=== PATIENT | female | born 1995 | race Caucasian/White ===

== ENCOUNTER 2017-06-11 20:21 | Emergency (ER) | payer BC ==
[~2017-06-11] VITALS: Ht 161.3 cm; Wt 81.6 kg
--- NOTE | ~2017-06-11 | US134 ---
[facility] A Service of [facility] RADIOLOGY TEXT RESULTS PATIENT: ROLY DESAI LOCATION: [facility] : [birth year] UNIT #: [id number] AGE: [address]: Gwyn Keita MD SEX: F ORDER DR: [id number] [facility] [address] [place], [place] [address] [id number] E MR#: [id number] Acc #: [id number] NAME: ROLY DESAI. : 1995 SEX: F STUDY DATE/TIME: 06/11/2017 21:09 UNIT: [facility] ROOM: STUDY DESCRIPTION: US Transvaginal Attending Physician: Drake Keita M.D. Ordering Physician: Angie Dale M.D. Primary Care Physician: Kole Stevenson M.D. MEDICAL IMAGING REPORT This report is preliminary unless electronic signature is present EXAM Pelvic ultrasound INDICATIONS Pelvic inflammatory disease. Tubal ovarian abscess. Left adnexal pain for 5 days of increasing severity. COMPARISON CT abdomen and pelvis 09/05/2014. FINDINGS Uterus is anteverted measuring 7.3 x 3.1 x 5 cm. Echogenicity echotexture of the myometrium is homogeneous. Initial stripe is homogeneous measuring 5 mm in thickness. The right ovary measures 2.9 x 2 x 2.1 cm. The left ovary measures 1.8 x 1.7 x 1.7 cm. There are a few normal follicular cysts within both ovaries. There is normal color Doppler flow. No adnexal mass or free pelvic fluid. IMPRESSION Negative pelvic ultrasound. Dictated by... Erick Alarcon M.D. THIS IS AN ELECTRONICALLY VERIFIED REPORT Erick Alarcon M.D. at 06/12/2017 3:12 PM CARRIE/dunia TD: 06/11/2017 22:39 JOB #: [id number] [facility] A Service [facility] RADIOLOGY TEXT RESULTS PATIENT: ROLY DESAI [facility] #: [id number] : [birth year] UNIT #: [id number] AGE: [address]: Gwyn Keita MD SEX: F ORDER DR: MEDICAL IMAGING REPORT Page 1 of 1 COPY
[~2017-06-11 20:21] MED LIST: FOCALIN XR PO; MOTRIN600 MG PO
[2017-06-11 21:22] LABS: BASOPHIL# 0.1 X10e3 (0-0.3); BASOPHIL% 0.7 % (0-2.5); EOSINOPHIL# 0.2 X10e3 (0-0.7); HEMATOCRIT 43.1 % (35.0-45.0); HEMOGLOBIN 14.6 gm/dL (12.0-16.0); LYMPHOCYTE# 3.5 X10e3 (1.0-3.5); LYMPHOCYTE% 44.1 % (17.0-45.0); MEAN CELL VOLUME 84.7 FL (83-96); MEAN CORPUSCULAR HEMOGLOBIN 28.7 PG (28-34); MEAN CORPUSCULAR HGB CONC 33.8 g/dL (30-36); MEAN PLATELET VOLUME 10.9 FL (6.5-11.5); MONOCYTE# 0.6 X10e3 (0-1.0); MONOCYTE% 7.3 % (3.0-12.0); NEUTROPHIL# 3.6 X10e3 (1.5-7.1); NEUTROPHIL% 44.9 % (40-75); PLATELET COUNT 191 X10e3 (140-420); RED BLOOD COUNT 5.09 X10e (3.90-5.30); RED CELL DISTRIBUTION WIDTH 12.5 % (11.0-15.5); WHITE BLOOD COUNT 7.9 X10e3 (4.0-10.5)
[2017-06-11 21:27] LABS: DIFF IND NO
[2017-06-11 21:35] LABS: ALBUMIN SERUM 3.6 g/dL (3.5-5.0); BILIRUBIN, DIRECT 0.2 mg/dL (0.0-0.2); BILIRUBIN,INDIRECT 0.7 mg/dL (0.0-0.9); BILIRUBIN,TOTAL 0.9 mg/dL (0.2-2.0); BUN/CREATININE RATIO 14.28; CALCIUM SERUM 8.9 mg/dL (8.4-10.2); CREATININE SERUM 0.7 mg/dL (0.6-1.4); GLOM FILT RATE Estimated 124.7 mL/min (>60); POTASSIUM 4.1 mmol/L (3.5-5.1); PROTEIN TOTAL SERUM 6.8 g/dL (6.0-8.3)
[2017-06-11 21:43] LABS: URINE SOURCE CLEAN CATCH
[2017-06-11 21:52] LABS: URINE APPEARANCE CLEAR; URINE BILIRUBIN NEG (NEG); URINE BLOOD TRACE (NEG); URINE COLOR YELLOW; URINE GLUCOSE NEG (NEG); URINE KETONE NEG (NEG); URINE LEUKOCYTE ESTERASE 1+ (NEG); URINE NITRATE NEG (NEG); URINE PROTEIN NEG (NEG); URINE SPECIFIC GRAVITY 1.022 (1.003-1.035); URINE UROBILINOGEN 0.2 MG/DL (NEG)
[2017-06-11 21:54] LABS: CULTURE INDICATED? YES; URBCS1 AUWI 0-2 /[HPF] (0-2); URINE BACTERIA AUWI NEG (NEGATIVE); URINE SQUAMOUS EPITHELIAL CELL OCC /[HPF]
[2017-06-15 22:29] LABS: CHLAMYDIA TRACH Not Detected (Not Detected); N GONOR Not Detected (Not Detected)
== END 2017-06-12 00:19 | disposition home or self-care (01) ==
LOC: CED 20:21
PROVIDERS: Emergency Medicine
DX: N73.0 Acute parametritis and pelvic cellulitis (principal); Z90.89 Acquired absence of other organs; Z88.2 Allergy status to sulfonamides; Z88.1 Allergy status to other antibiotic agents
CPT/HCPCS: 36415; 76830; 80048; 80076; 81003; 84703; 85025; 87086; 87491; 87591; 87808; 87905; 96361; 96372; 96374; 96375; 99284; J0696; J2270; J2405

== ENCOUNTER 2017-06-24 23:17 | Emergency (ER) | payer BC ==
[~2017-06-24] VITALS: Ht 160 cm; Wt 81.6 kg
[2017-06-25 02:28] LABS: BASOPHIL# 0.1 X10e3 (0-0.3); BASOPHIL% 0.8 % (0-2.5); EOSINOPHIL# 0.2 X10e3 (0-0.7); EOSINOPHIL% 2.9 % (0.0-7.0); HEMATOCRIT 42.3 % (35.0-45.0); HEMOGLOBIN 14.3 gm/dL (12.0-16.0); LYMPHOCYTE# 2.8 X10e3 (1.0-3.5); LYMPHOCYTE% 40.3 % (17.0-45.0); MEAN CELL VOLUME 84.8 FL (83-96); MEAN CORPUSCULAR HEMOGLOBIN 28.7 PG (28-34); MEAN CORPUSCULAR HGB CONC 33.9 g/dL (30-36); MEAN PLATELET VOLUME 10.6 FL (6.5-11.5); MONOCYTE# 0.8 X10e3 (0-1.0); MONOCYTE% 11.1 % (3.0-12.0); NEUTROPHIL# 3.1 X10e3 (1.5-7.1); NEUTROPHIL% 44.9 % (40-75); PLATELET COUNT 184 X10e3 (140-420); RED BLOOD COUNT 4.99 X10e (3.90-5.30); RED CELL DISTRIBUTION WIDTH 12.2 % (11.0-15.5); WHITE BLOOD COUNT 6.9 X10e3 (4.0-10.5)
[2017-06-25 02:30] LABS: DIFF IND NO
[2017-06-25 02:59] LABS: ALBUMIN SERUM 3.6 g/dL (3.5-5.0); BILIRUBIN, DIRECT 0.1 mg/dL (0.0-0.2); BILIRUBIN,INDIRECT 0.1 mg/dL (0.0-0.9); BILIRUBIN,TOTAL 0.2 mg/dL (0.2-2.0); BUN/CREATININE RATIO 17.14; CALCIUM SERUM 9.1 mg/dL (8.4-10.2); CREATININE SERUM 0.7 mg/dL (0.6-1.4); GLOM FILT RATE Estimated 124.7 mL/min (>60); PROTEIN TOTAL SERUM 6.9 g/dL (6.0-8.3)
[2017-06-25 03:49] LABS: URINE SOURCE CLEAN CATCH
[2017-06-25 03:56] LABS: URINE APPEARANCE CLEAR; URINE BILIRUBIN NEG (NEG); URINE BLOOD NEG (NEG); URINE COLOR YELLOW; URINE GLUCOSE NEG (NEG); URINE KETONE NEG (NEG); URINE LEUKOCYTE ESTERASE 1+ (NEG); URINE NITRATE NEG (NEG); URINE PROTEIN NEG (NEG); URINE SPECIFIC GRAVITY 1.024 (1.003-1.035); URINE UROBILINOGEN 0.2 MG/DL (NEG)
[2017-06-25 04:05] LABS: CULTURE INDICATED? YES; URINE BACTERIA AUWI 2+ (NEGATIVE); URINE SQUAMOUS EPITHELIAL CELL FEW /[HPF]
== END 2017-06-25 05:41 | disposition home or self-care (01) ==
LOC: CED 23:17
PROVIDERS: Physician Assistant
DX: R11.2 Nausea with vomiting, unspecified (principal); R10.9 Unspecified abdominal pain; R07.9 Chest pain, unspecified; T37.3X5A Adverse effect of other antiprotozoal drugs, initial encounter; Z88.1 Allergy status to other antibiotic agents; Z88.2 Allergy status to sulfonamides; Y92.9 Unspecified place or not applicable; Z90.89 Acquired absence of other organs
CPT/HCPCS: 36415; 80048; 80076; 81003; 83690; 84703; 85025; 87086; 96361; 96374; 96375; 99285; J1200; J1885; J2405; J2550